=== PATIENT | female | born 1960 | race Asian ===

== ENCOUNTER 2019-11-25 12:31 | Inpatient (IN) | payer MEDICAID, SELFPAY ==
[~2019-11-25] VITALS: Ht 162.6 cm; Wt 54.4 kg
[2019-11-25 12:31] VITALS: BP 133/74
--- NOTE | 2019-11-25 12:31 | NUR ---
Patient BIBA ALS, transferred to bed 1. RN evaluating patient at bedside.
[2019-11-25] MEDS ORDERED: NACL 0.9% 2,000 ML IV ONE (12:40)
[2019-11-25] MEDS ORDERED: ACETAMINOPHEN 650 MG SUPP RC ONE (12:40)
--- NOTE | 2019-11-25 12:40 | NUR ---
TEMP RECTALLY 106.5
--- NOTE | 2019-11-25 12:40 | NUR ---
pts extremities flaccid
--- NOTE | 2019-11-25 12:40 | NUR ---
BIBA FOUND BY [facility] [employer]. PT WAS REPORTED RIDING A MOPED AROUND [facility] [employer] AND PER BY STANDERS PATIENT WAS FOUND ON FLOOR. PT NOW ALOC. NO HEAD TRUAMA NOTED. PT OPEN EYES TO PAINFUL STIMULI AND MOVES HEAD. PT NON-VERBAL, NOT ANSWERING QUESTIONS. ABDOMEN SOFT. PT EXTREMELY WARM TO TOUCH. TACHY IN 150s. EMS INSERTED IV TO PTS L HAND AND GAVE APPROX 400 ML OF NACL. HX UNKNOWN UNKNOWN ALLERGIES
--- NOTE | 2019-11-25 12:44 | NUR ---
Dr. Cedillo is evaluating the patient at bedside.
--- NOTE | 2019-11-25 12:45 | NUR ---
ICE BAGS PLACED ON PT. WET TOWELS COVERING PT.
--- NOTE | 2019-11-25 12:59 | NUR ---
PT TAKEN TO CT WITH LILLI SANCHEZ
--- NOTE | 2019-11-25 13:06 | NUR ---
PT RETURNED FR9OM CT
--- NOTE | 2019-11-25 13:16 | NUR ---
RECTAL TYLENOL PO AQDMINISTERED
[2019-11-25] MEDS ORDERED: VANCOMYCIN 1,000 MG in DEXTROSE 5% 250 ML IV ONE (13:25)
--- NOTE | 2019-11-25 13:31 | NUR ---
# 16 FR Shi catheter with 10 ml utilizing sterile technique. Immediate return of YELLOW urine noted. Bedside drainage bag placed below level of bladder. Urine sample collected and sent to lab. Pt tolerated procedure WELL.
[2019-11-25 13:34] LABS: BASOPHILS % (AUTO) 0.5 % (0.0-2.0); EOSINOPHILS # (AUTO) 0.2 K/uL (0-0.4); EOSINOPHILS % (AUTO) 2.7 % (0.0-4.0); HEMATOCRIT 41.3 % (36-48); HEMOGLOBIN 13.5 g/dL (12.0-16.0); LYMPHOCYTES # (AUTO) 2.6 K/uL (2.5-16.5); LYMPHOCYTES % (AUTO) 35.5 % (20.5-51.1); MEAN CORPUSCULAR HEMOGLOBIN 29 pg (27-31); MEAN CORPUSCULAR HGB CONC 33 g/dL (33-37); MEAN CORPUSCULAR VOLUME 88.6 fL (80-94); MONOCYTES # (AUTO) 0.2 K/uL (0.8-1.0); MONOCYTES % (AUTO) 2.8 % (1.7-9.3); NEUTROPHILS # (AUTO) 4.2 K/uL (1.8-7.7); NEUTROPHILS % (AUTO) 58.5 % (42.2-75.2); PLATELET COUNT (AUTO) 207 K/uL (140-450); RED BLOOD CELL COUNT(AUTO) 4.66 MIL/uL (4.20-5.40); RED CELL DISTRIBUTION WIDTH 15.3 % (11.6-13.7); WHITE BLOOD COUNT (AUTO) 7.3 K/uL (4.8-10.8)
[2019-11-25] MEDS ORDERED: LORazepam 2 MG/ML VIAL IVP ONE ×2 (13:35→15:00)
[2019-11-25] MEDS ORDERED: VANCOMYCIN 1,000 MG VIAL ONE (13:38)
[2019-11-25] MEDS ORDERED: cefTRIAXone 1,000 MG VIAL ONE (13:38)
--- NOTE | 2019-11-25 13:43 | NUR ---
ROCPEHIN IVPB STARTED AT 100 MLS/HR
--- NOTE | 2019-11-25 13:43 | NUR ---
PT OPENING EYES, SPEAKING IN ANOTHER LANGUAGE. NOT FOLLOWING COMMANDS
--- NOTE | 2019-11-25 13:44 | NUR ---
MORE ICE BAGS PLACED IN AXILLARY AND GROIN AREAS
--- NOTE | 2019-11-25 13:45 | NUR ---
PT RESTLESS. CONTINUES TO TRY AND MOVE FROM BED. MOVING ALL EXTREMITIES. VERBAL ORDER FOR ATIVAN
[2019-11-25] MEDS ORDERED: NACL 0.9% 1,000 ML IV ONE (14:00)
[2019-11-25 14:04] LABS: APPEARANCE,URINE CLEAR (CLEAR); BILIRUBIN,URINE NEGATIVE (NEGATIVE); BLOOD, URINE NEGATIVE (NEGATIVE); COLOR,URINE YELLOW (YELLOW); LEUKOCYTE ESTERASE ,URINE NEGATIVE (NEGATIVE); NITRITE, URINE NEGATIVE (NEGATIVE); PH,URINE 5.5 (5.0-9.0); UGLUCOSE NEGATIVE (NEGATIVE)
[2019-11-25 14:11] LABS: BARBITURATE, URINE NEGATIVE ng/ml (NEG <=200); BENZODIAZEPINE, URINE POSITIVE ng/mL (NEG <=200); CANNABINOID, URINE NEGATIVE ng/mL (NEG <=50); COCAINE, URINE NEGATIVE ng/mL (NEG <=300); OPIATE, URINE NEGATIVE ng/mL (NEG <=2000); PHENCYCLIDINE SCREEN,URINE NEGATIVE ng/mL (NEG <=25)
--- NOTE | 2019-11-25 14:16 | NUR ---
PT CALM AT THIS TIME. CONTINUES TO OPEN EYES. VS STABLE
[2019-11-25 14:21] LABS: ALBUMIN 3.9 g/dL (3.4-5.0); ANION GAP 14.9 (8-16); ASPARTATE AMINOTRANSFERASE 54 U/L (15-37); CARBON DIOXIDE 25.3 mmol/L (21-32); CHLORIDE 109 mmol/L (98-107); CREATININE 1.7 mg/dL (0.6-1.3); FREE T4 (FREE THYROXINE) 0.86 ng/dL (0.76-1.46); GFR ARICAN-AMERICAN 39 mL/min (>90); GLUCOSE 128 mg/dL (74-106); POTASSIUM 5.2 mmol/L (3.5-5.1); SODIUM SERUM 144 mmol/L (136-145); THYROID STIMULATING HORMONE 1.87 uIU/mL (0.34-3.74); TOTAL BILIRUBIN 0.6 mg/dL (0.0-1.0); UREA NITROGEN, BLOOD 13 mg/dL (7-18)
[2019-11-25 14:29] LABS: ACETAMINOPHEN < 0.5 ug/ml (10-30); SALICYLATE < 2.8 mg/dL (2.8-20.0)
--- NOTE | 2019-11-25 14:29 | NUR ---
SPOKE WITH PTS [phone] AND HE STATES NO ALLERGIES THAT HE IS AWARE OF. PMH-HTN , CANT RECALL OTHERS. Addendum: 11/25/19 at 1437 by [email or web address] LILLI SANCHEZ SPOKE WITH
--- NOTE | 2019-11-25 15:05 | NUR ---
PT PULLED OUT R HAND IV, ATIVAN ORDER PLACED BY DR VEGA
--- NOTE | 2019-11-25 15:20 | NUR ---
HR NOW 103
--- NOTE | 2019-11-25 15:20 | NUR ---
PT TAKEN OFF OF NC, NOW ON RA
--- NOTE | 2019-11-25 15:31 | NUR ---
STEPHANY EMMANUEL, SPOKE WITH PTS AND TRANSLATED. PT SPEAKS MANDARIN. PMH-HTN NKA. PER , PTS BASELINE IS AMBULATORY, FULL ALERT AND ORIENTED.
--- NOTE | 2019-11-25 15:33 | NUR ---
NADR, PT MORE CALM AFTER SECOND ATIVAN ADMINISTERED. PT APPEARS TO BE NOW SPEAKING FULL SENTENCES. PT LAYING IN BED.
--- NOTE | 2019-11-25 15:49 | NUR ---
98.7 RECTAL TEMP CURRENTLY
--- NOTE | 2019-11-25 16:08 | NUR ---
PT SLEEPING AT THIS TIME. RR EVEN AND UNLABORED
--- NOTE | 2019-11-25 17:09 | NUR ---
PT SLEEPING, VS STABLE
--- NOTE | 2019-11-25 17:39 | NUR ---
SPOKE WITH PTS [phone] AND INFORMED HIM THAT HIS WILL BE STAYING OVERNIGHT.
[2019-11-25] MEDS ORDERED: ACETAMINOPHEN 325 MG TAB PO PRN (17:50)
[2019-11-25] MEDS ORDERED: ONDANSETRON 4 MG/2 ML VIAL IVP PRN (17:50)
--- NOTE | 2019-11-25 18:30 | NUR ---
Patient will be admitted to care of WILLIAM. Admited to TELE. Will go to room 129A. Belongings list completed. Report to PAULIE SANCHEZ. PT VERY SLEEPY UPON TRANSFER TO FLOOR, PT OPENING EYES
--- NOTE | 2019-11-25 18:30 | NUR ---
RECEIVED PT FROM ED NURSE. PT RESTING IN BED UPON ARRIVAL. FLACC 0. RESPIRATIONS EVEN AND UNLABORED WITH NO SOB OR RESPIRATORY DISTRESS. MRSA SWAB COLLECTED. SKIN WARM AND DRY TO TOUCH. SAFETY MEASURES IN PLACE. WILL CONTINUE TO MONITOR
--- NOTE | 2019-11-25 19:14 | NUR ---
ENDORSED AT BEDSIDE TO NIGHTSHIFT NURSE FOR CONTINUITY OF CARE. PT IS STABLE.
--- NOTE | 2019-11-25 19:14 | NUR ---
RECEIVED REPORT FROM DAY SHIFT NURSE. PT IN BED SLEEPING. CC: ALOC. RESPIRATIONS EVEN AND UNLABORED ON ROOM AIR. NO SIGNS/SYMPTOMS OF DISTRESS NOTED. FLACC 0. GUO CATHETER IN PLACE DRAINING WELL TO YELLOW URINE. IV ACCESS ON RIGHT AC CLEAN AND INTACT. SAFETY MEASURES IN PLACE. BED IN LOW POSITION, SIDE RAILS RAISED, CALL LIGHT WITHIN REACH. WILL CONTINUE TO MONITOR.
[2019-11-25 20:00] VITALS: BP 132/78
[2019-11-25] MEDS: NACL 0.9% 1,000 ML IV SCH (20:28)
--- NOTE | 2019-11-25 20:28 | NUR ---
PT IS AWAKE, ALERT, AND ORIENTED NOW. CALM AND COOPERATIVE TO CARE. VITAL SIGNS ARE STABLE. RESPIRATIONS ARE EVEN AND UNLABORED. FOOD AND SNACK PROVIDED. PT DENIES ANY PAIN OR DISCOMFORT AT THIS TIME. IVF HANGED ORDERED. NO OTHER REQUESTS MADE. PT KEPT COMFORTABLE. WILL CONTINUE TO MONITOR.
--- NOTE | 2019-11-25 22:22 | NUR ---
PT ASLEEP. NOT IN DISTRESS. RESPIRATIONS EVEN AND UNLABORED. O2 SAT 98%. CALL LIGHT WITHIN REACH. WILL CONTINUE TO MONITOR.
[2019-11-26] VITALS: BP 115/76
--- NOTE | 2019-11-26 00:11 | NUR ---
PT RESTING. VITAL SIGNS WNL. NO COMPLAINS MADE AT THIS TIME. PT KEPT COMFORTABLE. WILL CONTINUE TO MONITOR.
--- NOTE | 2019-11-26 02:24 | NUR ---
PT ASLEEP. NO S/SX OF DISTRESS NOTED. WILL CONTINUE TO MONITOR.-
[2019-11-26] MEDS: NACL 0.9% 1,000 ML IV SCH (03:46)
[2019-11-26 04:00] VITALS: BP 126/75
--- NOTE | 2019-11-26 04:05 | NUR ---
VITAL SIGNS WNL. PT DENIES ANY PAIN OR DISCOMFORT. PT KEPT COMFORTABLE AND SAFE. WILL CONTINUE TO MONITOR.
[2019-11-26 06:25] LABS: BASOPHILS % (AUTO) 0.6 % (0.0-2.0); EOSINOPHILS # (AUTO) 0.1 K/uL (0-0.4); EOSINOPHILS % (AUTO) 1.4 % (0.0-4.0); HEMATOCRIT 36.7 % (36-48); HEMOGLOBIN 12.1 g/dL (12.0-16.0); LYMPHOCYTES % (AUTO) 20.2 % (20.5-51.1); MEAN CORPUSCULAR HEMOGLOBIN 29 pg (27-31); MEAN CORPUSCULAR HGB CONC 33 g/dL (33-37); MEAN CORPUSCULAR VOLUME 89.2 fL (80-94); MONOCYTES # (AUTO) 0.5 K/uL (0.8-1.0); MONOCYTES % (AUTO) 9.3 % (1.7-9.3); NEUTROPHILS # (AUTO) 3.5 K/uL (1.8-7.7); NEUTROPHILS % (AUTO) 68.5 % (42.2-75.2); PLATELET COUNT (AUTO) 135 K/uL (140-450); RED BLOOD CELL COUNT(AUTO) 4.11 MIL/uL (4.20-5.40); RED CELL DISTRIBUTION WIDTH 15.5 % (11.6-13.7); WHITE BLOOD COUNT (AUTO) 5.1 K/uL (4.8-10.8)
[2019-11-26 06:48] LABS: ALBUMIN 3.3 g/dL (3.4-5.0); ANION GAP 13.7 (8-16); CREATININE 1.1 mg/dL (0.6-1.3); MAGNESIUM 2.1 mg/dL (1.8-2.4); POTASSIUM 3.7 mmol/L (3.5-5.1); TOTAL BILIRUBIN 0.6 mg/dL (0.0-1.0)
--- NOTE | 2019-11-26 07:22 | NUR ---
ENDORSED TO DAYSHIFT NURSE FOR CONTINUITY OF CARE. PT IN STABLE CONDITION.
--- NOTE | 2019-11-26 07:23 | NUR ---
RECEIVED PATIENT FROM [employer]AMMER NURSE FOR CONTINUITY OF CARE. PATIENT IS AWAKE. NO SIGNS OF DISTRESS NOTED. BED. RESPIRATIONS EVEN AND UNLABORED, ON ROOM. VISIBLE CHEST RISE AND FALL NOTED. ON TELE MONITORING. ABDOMEN SOFT AND NONTENDER. CARDIAC DIET. SKIN WARM, DRY, AND INTACT. IV IN THE R AC G18, RUNNING NS AT 100 ML/HR. NO SIGNS OF IV INFILTRATION NOTED. GUO CATHETER IN PLACE WITH YELLOW URINE IN THE BAG. FALL PRECAUTION. ON DROPLET PRECAUTION FOR COVID-19. RESULTS PENDING. BED IN LOW POSITION. CALL LIGHT IS WITHIN REACH. WILL CONTINUE TO MONITOR.
[2019-11-26 08:00] VITALS: BP 142/82
--- NOTE | 2019-11-26 10:26 | NUR ---
PATIENT IS CURRENTLY SLEEPING AT THIS TIME. NO SIGNS OF DISTRESS NOTED. IV RUNNING WELL. BED IN LOW POSITION. CALL LIGHT IS WITHIN REACH. WILL CONTINUE TO MONITOR.
--- NOTE | 2019-11-26 10:31 | NUR ---
HANG NEW IV BAG OF NS AT A RATE OF 100 ML/HR.
--- NOTE | 2019-11-26 11:09 | NUR ---
PATIENT IS ON THE PHONE WITH HER , KELLY.
--- NOTE | 2019-11-26 11:52 | NUR ---
VITAL SIGNS CHECKED. AFEBRILE. DENIES PAIN. BED IN LOW POSITION. CALL LIGHT IS WITHIN REACH. WILL CONTINUE TO MONITOR.
[2019-11-26 12:00] VITALS: BP 127/84
--- NOTE | 2019-11-26 12:16 | NUR ---
DR. PARIKH MADE ROUNDS.
--- NOTE | 2019-11-26 12:29 | NUR ---
PATIENT IS CURRENTLY EATING AT THIS TIME.
--- NOTE | 2019-11-26 12:45 | NUR ---
DISCONTINUED IVF NS AT A RATE OF 100 ML/HR PER MD ORDER. KVO TO 5 ML/HR. Addendum: 11/26/19 at 1251 by Princess Lita Law RN SALINE LOCK. NO KVO PER MD ORDER.
[2019-11-26 14:16] VITALS: BP 127/84
--- NOTE | 2019-11-26 14:44 | NUR ---
DISCONTINUED GUO CATHETER. CATHETER INTACT. EMPTIED GUO BAG PRIOR TO REMOVAL. 1800 ML OF CLEAR YELLOW URINE EMPITIEND. IV SITE ALSO DISCONTINUED.
--- NOTE | 2019-11-26 15:09 | NUR ---
GIVEN DISCHARGE INSTRUCTIONS. GIVEN APPIAH VIRUS 19 INSTRUCTIONS. EXPLAINED THAT SHE WILL GET A CALL REGARDING HER COVID-19 RESULT. EXPLAINED TO WASH HANDS OFTEN, WEAR MASK, DO NOT SHARE BELONGINGS, AND TO SELF-ISOLATE. PATIENT VERBALIZED UNDERSTANDING. PATIENT SIGNED DISCHARGED INSTRUCTIONS. NO FURTHER QUESTIONS ASKED.
--- NOTE | 2019-11-26 15:12 | NUR ---
REFUSED FLU AND PNA VACCINATIONS
--- NOTE | 2019-11-26 15:33 | NUR ---
PATIENT STATED THAT HER SON WILL PICK HER UP. WILL WAIT FOR THE SON.
--- NOTE | 2019-11-26 15:46 | NUR ---
DISCHARGED PATIENT ON FOOT. ACCOMPANIED PATIENT TO THE LOBBY. PATIENT IS WEARING SURGICAL MASK. SON PICKED UP THE PATIENT. IS IN STABLE CONDITION.
== END 2019-11-26 15:45 | disposition home or self-care (01) | DRG 815 ==
LOC: MED 12:31 → EEVIPCON 12:31 → MMU 17:50 → OBSVTOIN 11-26 11:24
PROVIDERS: ADMIT Hospitalist; ATTEND Hospitalist
DX: T67.01XA Heatstroke and sunstroke, initial encounter (principal); G93.41 Metabolic encephalopathy; N17.9 Acute kidney failure, unspecified; E87.2 Acidosis; I10 Essential (primary) hypertension; Z90.49 Acquired absence of other specified parts of digestive tract; X58.XXXA Exposure to other specified factors, initial encounter; Y93.89 Activity, other specified; Y92.89 Other specified places as the place of occurrence of the external cause; Y99.8 Other external cause status; E86.0 Dehydration; Z20.828 Contact with and (suspected) exposure to other viral communicable diseases
CPT/HCPCS: 51702; 96361; 96365; 96368; 96375; 99285; G0378; 36415; 70450; 71045; 80053; 80305; 81003; 81025; 82550; 82553; 83605; 83735; 84439; 84443; 84484; 85025; 87081; 93005; G0480; G0482; J0696; J2060; J3370; J7030; J7060; Q0092; U0003-CS

== ENCOUNTER 2022-10-17 17:24 | Emergency (ER) | payer MEDICAID ==
[~2022-10-17] VITALS: Ht 151.1 cm; Wt 70.3 kg
--- NOTE | 2022-10-17 17:30 | NUR ---
PT BIB BLS RUN FROM HOME C/O PALPITATIONS SINCE THIS AM. DENIES CP AT THIS TIME. NSR ON MONITOR.
[2022-10-17 17:32] VITALS: BP 162/93
[2022-10-17 18:26] VITALS: BP 148/80
--- NOTE | 2022-10-17 18:34 | NUR ---
CODE STROKE CALLED BY NADYA LEBLANC
--- NOTE | 2022-10-17 19:05 | NUR ---
SPOKE TO STATES PT HAS BEEN CONFUSED FOR MONTHS. C/O HEADACHE X3 DAYS AND STATING "I FEEL LIKE I AM GOING TO " PRIOR TO CALLING 911.
--- NOTE | 2022-10-17 19:15 | NUR ---
handoff received. assumed care of patient.
[2022-10-17 19:19] LABS: BASOPHILS % (AUTO) 0.5 % (0.0-2.0); EOSINOPHILS % (AUTO) 0.5 % (0.0-4.0); HEMATOCRIT 41.9 % (36-48); HEMOGLOBIN 13.8 g/dL (12.0-16.0); LYMPHOCYTES # (AUTO) 1.2 K/uL (2.5-16.5); LYMPHOCYTES % (AUTO) 18.8 % (20.5-51.1); MEAN CORPUSCULAR HEMOGLOBIN 29 pg (27-31); MEAN CORPUSCULAR HGB CONC 33 g/dL (33-37); MEAN CORPUSCULAR VOLUME 87.2 fL (80-94); MONOCYTES # (AUTO) 0.3 K/uL (0.8-1.0); MONOCYTES % (AUTO) 4.5 % (1.7-9.3); NEUTROPHILS % (AUTO) 75.7 % (42.2-75.2); PLATELET COUNT (AUTO) 225 K/uL (140-450); RED BLOOD CELL COUNT(AUTO) 4.81 MIL/uL (4.20-5.40); WHITE BLOOD COUNT (AUTO) 6.5 K/uL (4.8-10.8)
[2022-10-17] MEDS ORDERED: ACETAMINOPHEN EXTRA STRENGTH 500 MG TAB PO ONE (19:35)
[2022-10-17 19:46] LABS: ALBUMIN 4.1 g/dL (3.4-5.0); ANION GAP 14.2 (8-16); CARBON DIOXIDE 23.5 mmol/L (21-32); CREATININE 0.9 mg/dL (0.6-1.3); POTASSIUM 3.7 mmol/L (3.5-5.1); TOTAL BILIRUBIN 0.6 mg/dL (0.0-1.0)
[2022-10-17 20:00] LABS: BILIRUBIN,URINE NEGATIVE (NEGATIVE); BLOOD, URINE TRACE-I (NEGATIVE); LEUKOCYTE ESTERASE ,URINE 2+ (NEGATIVE); NITRITE, URINE NEGATIVE (NEGATIVE); UGLUCOSE NEGATIVE (NEGATIVE)
--- NOTE | 2022-10-17 20:15 | NUR ---
HANDOFF GIVEN TO LAURA ROMAN. TX OF CARE
[2022-10-17 20:22] LABS: APPEARANCE,URINE HAZY (CLEAR); COLOR,URINE STRAW (YELLOW)
[2022-10-17 20:23] LABS: BARBITURATE, URINE NEGATIVE ng/ml (NEG <=200); BENZODIAZEPINE, URINE POSITIVE ng/mL (NEG <=200); CANNABINOID, URINE NEGATIVE ng/mL (NEG <=50); COCAINE, URINE NEGATIVE ng/mL (NEG <=300); OPIATE, URINE NEGATIVE ng/mL (NEG <=2000); PHENCYCLIDINE SCREEN,URINE NEGATIVE ng/mL (NEG <=25); RBC,URINE 0-5 /HPF (0-5)
--- NOTE | 2022-10-17 20:50 | NUR ---
AWAKE, STANDING AT BEDSIDE, ASSISTED BACK TO BED AND MADE COMFORTABLE. PT STATES "I WANT TO GO HOME"
[2022-10-17] MEDS ORDERED: CEPH-588 PO (21:13)
[2022-10-17] MEDS ORDERED: cephALEXin 500 MG CAP PO ONE (21:15)
--- NOTE | 2022-10-17 21:18 | NUR ---
Tammy dove in [facility] - 10/17/22 at 2224 by MILAD TROPONIN REPORTED = [phone]. DR MURPHY NOTIFIED
--- NOTE | 2022-10-17 21:45 | NUR ---
Tammy dove in [facility] - 10/17/22 at 2224 by MILAD REPORT CALLED TO LAURA SHUKLA
== END 2022-10-17 21:35 | disposition home or self-care (01) ==
LOC: MED 17:24
DX: N39.0 Urinary tract infection, site not specified (principal); R00.2 Palpitations; R51.9 Headache, unspecified; I10 Essential (primary) hypertension; Z79.899 Other long term (current) drug therapy
CPT/HCPCS: 36415; 70450; 71045; 80053; 80305; 81001; 83880; 84484; 85025; 87086; 93005; 99285; Q0092